=== PATIENT | male | born 1955 | race Caucasian/White ===

== ENCOUNTER 2018-11-12 08:08 | Emergency (ER) | payer MEDICARE, MEDICAID ==
--- NOTE | 2018-11-12 08:27 | EDM.PDOC ---
ED HPI GENERAL MEDICAL PROBLEM - General Chief Complaint: Respiratory Problem Stated Complaint: shortness of breath, anxiety Time Seen by Provider: 11/12/18 08:20 Source of Information: Reports: Patient, Jail Records, Old Records ([facility] EMR. No paper hospital chart available.) History Limitations: Reports: Respiratory Distress - History of Present Illness INITIAL COMMENTS - FREE TEXT/NARRATIVE: The patient was brought to the emergency room via transport vehicle from [facility] in [place] for evaluation of sudden onset dyspnea with patient having mild URI symptoms during the last week. Patient did receive his normal morning morphine and a nebulizer treatment with no improvement in his symptoms. His O2 sat prior to transfer was 90% on 3 L/m by nasal cannula. The patient did feel that he was having an anxiety attack and wanted to have Ativan , which has not been previously ordered for this patient secondary to his previous abuse history. He is a somewhat poor historian secondary to his current respiratory distress. The patient denies any chest pain/pressure, heart flutter, dizziness, orthostasis, orthopnea, diaphoresis, paresthesias, recent decreased exercise tolerance, or any other anginal-type symptoms, however his overall exercise tolerance is low with patient having bilateral below the knee amputations. No known history of abdominal pain, nausea, emesis, etc. Patient has had some URI symptoms as above with mild exacerbation of his COPD during the last few days. Onset: Today, Sudden, Unknown/Unsure Onset Date: 11/12/18 Onset Time: 07:00 Duration: Constant, Getting Worse Location: Reports: Other (No specific pain) Quality: Reports: Same as Previous Episode Improves with: Reports: None Worsens with: Reports: None Context: Reports: Other (As above). Denies: Sick Contact, Trauma Associated Symptoms: Reports: Cough, cough w sputum, Shortness of Breath. 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 Preglaucoma. Chronic tinnitus. Cardiovascular History: Reports: Blood Clots/VTE/DVT, High Cholesterol, Hypertension, PVD, Other (See Below) Other Cardiovascular History: DVT at unknown site with current Xarelto therapy. Respiratory History: Reports: Bronchitis, Recurrent, COPD, Intubation, Previous , Pneumonia, Recurrent, Pulmonary Fibrosis. Denies: Intubation, Difficult Gastrointestinal History: Reports: Chronic Constipation, Colon Polyp, GERD, Hiatal Hernia, Other (See Below) Other Gastrointestinal History: Sepulveda's esophagitis Genitourinary History: Reports: BPH Musculoskeletal History: Reports: Arthritis, Osteoarthritis, Osteoporosis, RA Neurological History: Reports: Neuropathy, Diabetic, Neuropathy, Peripheral, Other (See Below) Other Neuro History: Restless leg syndrome Psychiatric History: Reports: Addiction, Anxiety, Depression, Other (See Below) Other Psychiatric History: History of alcohol abuse and chronic narcotic use. Chronic insomnia. Endocrine/Metabolic History: Reports: Diabetes, Type II, Obesity/BMI 30+, Osteopenia, Osteoporosis, Vitamin D Deficiency, Other (See Below). Denies: Diabetes, Type I, Diabetes Mellitus, Type 3c, IDDM Other Endocrine/Metabolic History: Hypokalemia. Hematologic History: Reports: Anemia, Iron Deficiency - Infectious Disease History Infectious Disease History: Reports: MRSA (MRSA carrier) - Past Surgical History Musculoskeletal Surgical History: Reports: Amputation, Joint Replacement, Other (See Below) Other Musculoskeletal Surgeries/Procedures:: Bilateral [id number] amputations secondary to peripheral vascular disease. Left hip TEP. - Past Imaging History Past Imaging History: Reports: MRI (Left lower leg on 09/30/18.), PET (Whole Body PET scan on 09/05/18) Social & Family History - Tobacco Use Smoking Status *Q: Unknown Ever Smoked - Living Situation & Occupation Living situation: Reports: Extended Care Facility ([facility] in [place]) ED ROS GENERAL - Review of Systems Review Of Systems: ROS reveals no pertinent complaints other than HPI. ED EXAM, GENERAL - Physical Exam Exam: See Below Exam Limited By: Respiratory Distress General Appearance: Alert, Anxious (Severe), Severe Distress, Obese Eye Exam: Bilateral Eye: EOMI, Normal Inspection, PERRL Ears: Normal External Exam, Normal Canal, Normal TMs, Hearing Loss (Mild to moderate bilateral presbycusis) Nose: Normal Mucosa, No Blood, Clear Rhinorrhea Throat/Mouth: Normal Lips, Normal Gums, Normal Oropharynx, Normal Voice, No Airway Compromise. No: Normal Teeth (Complete absent dentition), Dysphagia, Perioral Cyanosis Head: Atraumatic, Normocephalic. No: Facial Swelling, Facial Tenderness, Sinus Tenderness Neck: Supple, Non-Tender, Full Range of Motion, Carotid Bruit (Mild bilateral carotid bruits), Limited Range of Motion. No: Lymphadenopathy (L), Lymphadenopathy (R), Thyromegaly Respiratory/Chest: Chest Non-Tender, Respiratory Distress (Severe as above), Decreased Breath Sounds, Rales (Moderate diffuse), Rhonchi (Bilateralmild), Wheezing (Occasional bilateral), Accessory Muscle Use, Retractions (Severe), Splinting. No: Pleural Rub Cardiovascular: No JVD, No Murmur, No Rub, Tachycardia (Sinus tachycardia by monitor), Other (Quiet heart sounds). No: Gallop/S3, Gallop/S4, Friction Rub Peripheral Pulses: 2+: Radial (L), Radial (R) GI/Abdominal: Normal Bowel Sounds, Soft, Non-Tender, No Organomegaly, No Abnormal Bruit, No Mass, Pelvis Stable, Distended (Mild). No: Guarding, Rigid, Rebound, Tender (Male) Exam: Deferred Rectal (Males) Exam: Deferred Back Exam: Normal Inspection, Full Range of Motion. No: CVA Tenderness (L), CVA Tenderness (R), Muscle Spasm Extremities: No Pedal Edema, Other (Bilateral below the knee amputations status post left knee TEP scar) Psychiatric: Anxious (Moderate to severe secondary to respiratory distress) Skin Exam: Warm, Dry, Intact, Normal Color, No Rash. No: Diaphoretic, Wound/ Incision Lymphatic: No Adenopathy ED GENERAL MEDICAL PROCEDURES - Endotracheal Intubation Time of Intubation: 09:55 ET Intubation Indication: Respiratory Failure Preparation: Suction, Balloon Tested, BVM Set Up Airway Assessment: Profuse Secretions, Obese, Large Tongue, Other (Stenotic vocal cords) Pre-Oxygenation: Assisted with BVM, 100% FiO2 Anesthesia Meds: Rocuronium, Succinylcholine, Other (IV Ativan) Placement: Orotracheal, Complicated Placement Cords Visualized: Yes, Other (See Criticare Note) ETT Size In mm: 6.5 (See comment note) Number of Attempts: Other: (See comment) Confirmed By: CO2 Indicator, Bilateral Breath Sounds Tube Secured By: By RN Endotracheal Intubation Comment: Critical care note: Note intubation was attempted with previous oral disinfection with multiple wipes. Visibility was overall good with occasional suctioning required. Note initial attempt 2 with #7 ET tube were unsuccessful secondary to strongly narrow/spastic vocal cords with adequate vocal cord visualization. Subsequent attempt with 6.5 ET tube 1 failed with additional attempt with 6.0 ET tube also unsuccessful. Note that Whitakers Scope was used for all intubations. Subsequent placement of a #4 Gabo tube was successful, however note despite preliminary check of cuffs Gabo tube showed a nonspecific leak from unknown source with inadequate oxygenation.. Gabo tube was replaced with #3 Igel, which showed peripheral air leaks, with subsequent change to #4 Igel with overall good oxygenation, etc. Note the patient was premedicated initially with 100 mg of IV succinylcholine with a total of 4 mg of IV Ativan given prior to initial intubation attempts. Additional 500 mg IV doses of succinylcholine 2 were required during his care. Note that also an additional 2 doses of 2 mg of IV Ativan were given during intubation process as above. Patient also received 90 mg of reconium after succinylcholine. Frequent reoxygenation with nonrebreather bag and mask ventilation after intubation and suctioning attempts. Note that Emed was also involved in the patient care. NG tube was placed by the nurse in the left naris Subsequent arrival of air flight team, who did elect to further premedicate the patient and attempt to place a 7.5 ET tube by means of a Bougee, which was successful. Total one-on-one continuous critical medical care time by this provider of 3.5 hours. EKG INTERPRETATION EKG Date: 11/12/18 Time: 10:44 Rhythm: Other (Sinus tachycardia) Rate (Beats/Min): 134 Lane City: LAD-Left Lane City Deviation (Extended left cardiac axis) P-Wave: Present QRS: RBBB (QRS interval of 0.10 seconds representing repolarization changes versus beginning incomplete right bundle branch block) ST-T: Other (T-wave inversion in lead AV L with nonspecific ST changes in lead 1. Additional mildly upsloping [address] depressions in leads V4 through V6) QT: Normal LA/PQ Interval: 0.14 seconds with poor R-wave progression in the anterior leads. Comparison: NA - No Prior EKG EKG Interpretation Comments: 1. Possible lateral wall cardiac ischemia 2. Sinus tachycardia 3. Repolarization changes versus borderline incomplete right bundle branch block Course - Vital Signs Last Recorded V/S: Last Vital Signs Temp Pulse 134 H 11/12/18 10:42 Resp BP 171/92 H 11/12/18 10:42 Pulse Ox See paper documentation - Orders/Labs/Meds Orders: Active Orders 24 hr Category Date Time Status Cardiac Monitoring [RC] . DIRECTED Care 11/12/18 08:27 Active EKG Documentation Completion [RC] ASDIRECTED Care 11/12/18 08:27 Active Dupree Catheter Insertion [Insert Urinary Catheter] [OM. Care 11/12/18 09:00 Ordered PC] Q24H Oxygen Therapy, ED [RC] CONTINUOUS Care 11/12/18 08:27 Active Peripheral IV Care [RC] . DIRECTED Care 11/12/18 08:27 Active Peripheral IV Care [RC] . DIRECTED Care 11/12/18 10:33 Ordered Pulse Oximetry [RC] CONTINUOUS Care 11/12/18 08:27 Active Up With Assistance [RC] PFP Care 11/12/18 08:27 Active Urinary Catheter Assessment [RC] ASDIRECTED Care 11/12/18 08:54 Active Vital Signs [RC] PFP Care 11/12/18 08:27 Active Nothing per Oral Now Diet [DIET] Diet 11/12/18 Breakfast Active Chest 1V Frontal [CR] Stat Exams 11/12/18 08:27 Ordered INFLUENZA A+B AG SCREEN [RM] Stat Lab 11/12/18 08:29 Ordered Morphine Med 11/12/18 08:28 Once 2 mg IVPUSH ONETIME ONE Morphine Med 11/12/18 08:46 Once 2 mg IVPUSH ONETIME ONE Sodium Chloride 0.9% [Saline Flush] Med 11/12/18 08:27 Active 10 ml FLUSH ASDIRECTED PRN Sodium Chloride 0.9% [Saline Flush] Med 11/12/18 10:32 Ordered 10 ml FLUSH ASDIRECTED PRN cefTRIAXone [Rocephin] 1 gm Med 11/12/18 11:48 Ordered Sodium Chloride 0.9% [Normal Saline] 100 ml IV ONETIME Obtain Past Medical Record [OM.PC] Urgent Oth 11/12/18 08:27 Active Peripheral IV Insertion Adult [OM.PC] Routine Oth 11/12/18 10:32 Ordered Peripheral IV Insertion Adult [OM.PC] Stat Oth 11/12/18 08:27 Ordered Resuscitation Status Stat Resus Stat 11/12/18 08:27 Ordered Medication Orders Morphine Sulfate (Morphine) 2 mg IVPUSH ONETIME ONE Stop: 11/13/18 08:29 Last Admin: 11/12/18 08:36 Dose: 2 mg Morphine Sulfate (Morphine) 2 mg IVPUSH ONETIME ONE Stop: 11/13/18 08:47 Last Admin: 11/12/18 08:50 Dose: 2 mg Sodium Chloride (Saline Flush) 10 ml FLUSH ASDIRECTED PRN PRN Reason: Keep Vein Open Last Admin: 11/12/18 09:00 Dose: 10 ml Sodium Chloride (Saline Flush) 10 ml FLUSH ASDIRECTED PRN PRN Reason: Keep Vein Open Labs: Laboratory Tests 11/12/18 11/12/18 11/12/18 Range/Units 08:35 08:35 08:35 WBC 16.6 H (4.0-10.2) K/uL RBC 4.11 L (4.33-5.41) M/uL Hgb 11.9 L D (13.1-16.8) g/dL Hct 37.4 L (39.0-49.0) % MCV 91.0 (84.0-98.0) fL MCH 29.0 (28.2-33.3) pg MCHC 31.8 (31.7-36.0) g/dL RDW 15.0 H (11.2-14.1) % Plt Count 267 (150-350) K/uL Neut % (Auto) 87.4 H (45.0-80.0) % Lymph % (Auto) 9.7 L (10.0-50.0) % Hendry % (Auto) 1.5 L (2.0-14.0) % Eos % (Auto) 1.3 (0.0-5.0) % Baso % (Auto) 0.1 (0.0-2.0) % Neut # (Auto) 14.49 H (1.40-7.00) K/uL Lymph # (Auto) 1.60 (0.50-3.50) K/uL Hendry # (Auto) 0.25 (0.00-1.00) K/uL Eos # (Auto) 0.21 (0.00-0.50) K/uL Baso # (Auto) 0.01 (0.00-0.20) K/uL PT 10.0 (9.5-12.0) SEC INR 0.9 APTT 23.6 (21.0-31.3) SEC D-Dimer, Quantitative 853 H (0-400) ng/mL Sodium (136-145) mmol/L Potassium (3.5-5.1) mmol/L Chloride (98-107) mmol/L Carbon Dioxide (21.0-32.0) mmol/L BUN (7-18) mg/dL Creatinine (0.51-1.17) mg/dL Est Cr Clr Drug Dosing Estimated GFR (MDRD) mL/min Glucose (74-106) mg/dL Lactic Acid (0.4-2.0) mmol/L Uric Acid (2.6-7.2) mg/dL Calcium (8.5-10.1) mg/dL Magnesium (1.8-2.4) mg/dL Total Bilirubin (0.2-1.0) mg/dL AST (15-37) U/L ALT (12-78) U/L Alkaline Phosphatase (46-116) IU/L Creatine Kinase (26-308) U/L Creatine Kinase Index (0.0-2.5) % CK-MB (CK-2) (0.00-3.60) ng/mL Troponin I (0.000-0.056) ng/mL NT-Pro-B Natriuret Pep (0-125) pg/mL Total Protein (6.4-8.2) g/dL Albumin (3.4-5.0) g/dL TSH, Ultra Sensitive (0.358-3.740) mIU/mL 11/12/18 11/12/18 Range/Units 08:35 08:35 WBC (4.0-10.2) K/uL RBC (4.33-5.41) M/uL Hgb (13.1-16.8) g/dL Hct (39.0-49.0) % MCV (84.0-98.0) fL MCH (28.2-33.3) pg MCHC (31.7-36.0) g/dL RDW (11.2-14.1) % Plt Count (150-350) K/uL Neut % (Auto) (45.0-80.0) % Lymph % (Auto) (10.0-50.0) % Hendry % (Auto) (2.0-14.0) % Eos % (Auto) (0.0-5.0) % Baso % (Auto) (0.0-2.0) % Neut # (Auto) (1.40-7.00) K/uL Lymph # (Auto) (0.50-3.50) K/uL Hendry # (Auto) (0.00-1.00) K/uL Eos # (Auto) (0.00-0.50) K/uL Baso # (Auto) (0.00-0.20) K/uL PT (9.5-12.0) SEC INR APTT (21.0-31.3) SEC D-Dimer, Quantitative (0-400) ng/mL Sodium 138 (136-145) mmol/L Potassium 4.0 (3.5-5.1) mmol/L Chloride 99 (98-107) mmol/L Carbon Dioxide 30.9 (21.0-32.0) mmol/L BUN 18 (7-18) mg/dL Creatinine 0.79 (0.51-1.17) mg/dL Est Cr Clr Drug Dosing TNP Estimated GFR (MDRD) > 60 mL/min Glucose 127 H (74-106) mg/dL Lactic Acid 2.6 H (0.4-2.0) mmol/L Uric Acid 4.3 (2.6-7.2) mg/dL Calcium 8.9 (8.5-10.1) mg/dL Magnesium 1.6 L (1.8-2.4) mg/dL Total Bilirubin 0.3 (0.2-1.0) mg/dL AST 34 (15-37) U/L ALT 29 (12-78) U/L Alkaline Phosphatase 67 (46-116) IU/L Creatine Kinase 105 (26-308) U/L Creatine Kinase Index 2.2 (0.0-2.5) % CK-MB (CK-2) 2.30 (0.00-3.60) ng/mL Troponin I 0.000 (0.000-0.056) ng/mL NT-Pro-B Natriuret Pep 97 (0-125) pg/mL Total Protein 8.0 (6.4-8.2) g/dL Albumin 3.4 (3.4-5.0) g/dL TSH, Ultra Sensitive 1.784 (0.358-3.740) mIU/mL Meds: Medications Generic Name Dose Route Start Last Admin Trade Name Freq PRN Reason Stop Dose Admin Morphine Sulfate 2 mg 11/12/18 08:28 11/12/18 08:36 Morphine IVPUSH 11/13/18 08:29 2 mg ONETIME ONE Administration Morphine Sulfate 2 mg 11/12/18 08:46 11/12/18 08:50 Morphine IVPUSH 11/13/18 08:47 2 mg ONETIME ONE Administration Sodium Chloride 10 ml 11/12/18 08:27 11/12/18 09:00 Saline Flush FLUSH 10 ml ASDIRECTED PRN Administration Keep Vein Open Sodium Chloride 10 ml 11/12/18 10:32 Saline Flush FLUSH ASDIRECTED PRN Keep Vein Open Discontinued Medications Generic Name Dose Route Start Last Admin Trade Name Freq PRN Reason Stop Dose Admin Famotidine 40 mg 11/12/18 08:27 11/12/18 08:47 Pepcid IVPUSH 11/12/18 08:28 40 mg ONETIME ONE Administration Furosemide 60 mg 11/12/18 08:29 11/12/18 08:34 Lasix IVPUSH 11/12/18 08:30 60 mg NOW ONE Administration Lorazepam 1 mg 11/12/18 08:29 11/12/18 08:38 Ativan IVPUSH 11/12/18 08:30 1 mg ONETIME ONE Administration Lorazepam 1 mg 11/12/18 08:54 11/12/18 08:56 Ativan IVPUSH 11/12/18 08:55 1 mg ONETIME ONE Administration Lorazepam 2 mg 11/12/18 09:04 Ativan IVPUSH 11/12/18 09:05 ONETIME ONE Lorazepam Confirm 11/12/18 09:13 Ativan Administered 11/12/18 09:14 Dose 2 mg .ROUTE .STK-MED ONE Lorazepam Confirm 11/12/18 09:46 Ativan Administered 11/12/18 09:47 Dose 2 mg .ROUTE .STK-MED ONE Metoprolol Tartrate 2.5 mg 11/12/18 08:27 11/12/18 08:40 Lopressor IVPUSH 11/12/18 08:28 2.5 mg ONETIME ONE Administration Metoprolol Tartrate 2.5 mg 11/12/18 10:11 Lopressor IVPUSH 11/12/18 10:12 ONETIME ONE Metoprolol Tartrate 2.5 mg 11/12/18 10:33 11/12/18 10:42 Lopressor IVPUSH 11/12/18 10:34 2.5 mg ONETIME ONE Administration Nitroglycerin 0.5 gm 11/12/18 10:33 11/12/18 10:43 Nitro-Bid 2% TOP 11/12/18 10:34 0.5 gm ONETIME ONE Administration Rocuronium Skillman Confirm 11/12/18 10:02 Zemuron Administered 11/12/18 10:03 Dose 100 mg .ROUTE .STK-MED ONE Succinylcholine Chloride 100 mg 11/12/18 09:04 Quelicin IV 11/12/18 09:05 ONETIME ONE See paper documentation for more detailed accurate record - Radiology Interpretation Free Text/Narrative:: 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 Pulses in the 130s prior to transfer with no other ectopy or arrhythmia Chest x-ray, portable, shows NG tube to be in proper position. Moderate diffuse COPD changes with no evidence of pneumothorax. Large V-shaped consolidation/ atelectasis in the right lower lobe consistent with possible pulmonary embolism. Moderate CHF with mild bilateral pleural effusions. Official chest x-ray report from above indicates suspected right lower lobe pneumonia with no direct indication of CHF Departure - Departure Time of Disposition: 12:00 Disposition: DC/Tfer to Acute Hospital 02 Condition: Critical Clinical Impression: CHF, Congestive heart failure, Gastroesophageal reflux disease, Hypertension, Respiratory failure, COPD (chronic obstructive pulmonary disease), Elevated d- dimer, Hypomagnesemia, Lactic acid blood increased, Anemia - Discharge Information *PRESCRIPTION DRUG MONITORING PROGRAM REVIEWED*: Not Applicable *COPY OF PRESCRIPTION DRUG MONITORING REPORT IN PATIENT ISAURA: Not Applicable Referrals: Claudia Louis MD [Primary Care Provider] - Forms: ED Department Discharge, Interfacility Transfer EMTALA - Problem List & Annotations (1) Respiratory failure SNOMED Code(s): 066798148 Code(s): J96.90 - RESPIRATORY FAILURE, UNSP, UNSP W HYPOXIA OR HYPERCAPNIA Status: Acute Priority: High Onset Date: 11/12/18 Annotation/Comment:: See intubation/critical care note as above. Qualifiers: Chronicity: acute Respiratory failure complication: hypoxia Qualified Code(s): J96.01 - Acute respiratory failure with hypoxia (2) CHF, Congestive heart failure SNOMED Code(s): 36582177 Code(s): I50.9 - HEART FAILURE, UNSPECIFIED Status: Acute Priority: High Annotation/Comment:: Despite normal cardiac enzymes and BNP there was evidence of clinical CHF, including borderline CHF by my evaluation of chest x- ray, although the official x-ray report did not confirm this. Note nonspecific possible lateral wall ischemia by today's EKG with no anginal complaints prior to arrival. High-dose IV Lasix at 60 mg given with excellent output prior to transfer. (3) Elevated d-dimer SNOMED Code(s): 095139772 Code(s): R79.89 - OTHER SPECIFIED ABNORMAL FINDINGS OF BLOOD CHEMISTRY Status: Acute Priority: High Onset Date: 11/12/18 Annotation/Comment:: Note evaluation of today's chest x-ray indicates possible right lower lobe PE, which the radiologist did not confirm as above. Note current Xarelto and ASA therapy for previous distant DVT. Further evaluation by accepting providers. (4) Lactic acid blood increased SNOMED Code(s): 9071246 Code(s): R79.89 - OTHER SPECIFIED ABNORMAL FINDINGS OF BLOOD CHEMISTRY Status: Acute Priority: High Annotation/Comment:: As above. Note significant leukocytosis likely secondary to stress reaction. Possible pneumonia as above. Blood cultures were not collected with air flight team agreeing to initiate IV Rocephin antibiotic therapy immediately prior to transfer. Consider initiation of sepsis protocol by accepting providers on his arrival to their facility. Note, however, that patient is afebrile. (5) COPD (chronic obstructive pulmonary disease) SNOMED Code(s): 90270101 Code(s): J44.9 - CHRONIC OBSTRUCTIVE PULMONARY DISEASE, UNSPECIFIED Status : Chronic Priority: High Annotation/Comment:: Evidence of possible right middle lobe by chest x-ray reported as above. Note lactic acid elevation as below. Consider further aggressive IV antibiotic therapy by accepting providers with IV Rocephin therapy initiated immediately prior to patient's transfer. Qualifiers: COPD type: COPD with acute lower respiratory infection Qualified Code(s): J44.0 - Chronic obstructive pulmonary disease with acute lower respiratory infection (6) Anemia SNOMED Code(s): 727905277 Code(s): D64.9 - ANEMIA, UNSPECIFIED Status: Chronic Priority: Medium Annotation/Comment:: Mild iron deficiency anemia known by history with current Xarelto and aspirin therapy. No evidence of acute GI bleed Qualifiers: Anemia type: iron deficiency Iron deficiency anemia type: other iron deficiency Qualified Code(s): D50.8 - Other iron deficiency anemias (7) Gastroesophageal reflux disease SNOMED Code(s): 007451630 Code(s): K21.9 - GASTRO-ESOPHAGEAL REFLUX DISEASE WITHOUT ESOPHAGITIS Status: Chronic Priority: Medium Annotation/Comment:: High-dose IV Pepcid given as GI prophylaxis. Patient does have history of Sepulveda's esophagitis with no recent history of acute GI bleed, etc. Qualifiers: Esophagitis presence: with esophagitis Qualified Code(s): K21.0 - Gastro- esophageal reflux disease with esophagitis (8) Hypertension SNOMED Code(s): 27455458 Code(s): I10 - ESSENTIAL (PRIMARY) HYPERTENSION Status: Acute Priority: High Annotation/Comment:: Patient was moderately hypertensive on arrival secondary to respiratory distress. No known history of medication noncompliance with the patient receiving his a.m. medications. A total of 4 aliquots 2.5 mg of IV Lopressor was given throughout his care in this facility. Vital signs and blood pressures were improved prior to transfer Qualifiers: Hypertension type: essential hypertension Qualified Code(s): I10 - Essential (primary) hypertension (9) Hypomagnesemia SNOMED Code(s): 508754403 Code(s): E83.42 - HYPOMAGNESEMIA Status: Acute Priority: Medium Onset Date: 11/12/18 Annotation/Comment:: Consider magnesium supplementation especially in light of IV Lasix therapy. - Problem List Review Problem List Initiated/Reviewed/Updated: Yes - My Orders Last 24 Hours: My Active Orders 11/12/18 08:27 Cardiac Monitoring [RC] . DIRECTED EKG Documentation Completion [RC] ASDIRECTED Oxygen Therapy, ED [RC] CONTINUOUS Peripheral IV Care [RC] . DIRECTED Pulse Oximetry [RC] CONTINUOUS Up With Assistance [RC] PFP Vital Signs [RC] PFP Chest 1V Frontal [CR] Stat Sodium Chloride 0.9% [Saline Flush] 10 ml FLUSH ASDIRECTED PRN Obtain Past Medical Record [OM.PC] Urgent Peripheral IV Insertion Adult [OM.PC] Stat Resuscitation Status Stat 11/12/18 08:28 Morphine 2 mg IVPUSH ONETIME ONE 11/12/18 08:29 INFLUENZA A+B AG SCREEN [RM] Stat 11/12/18 08:46 Morphine 2 mg IVPUSH ONETIME ONE 11/12/18 08:54 Urinary Catheter Assessment [RC] ASDIRECTED 11/12/18 09:00 Dupree Catheter Insertion [Insert Urinary Catheter] [OM.PC] Q24H 11/12/18 10:32 Sodium Chloride 0.9% [Saline Flush] 10 ml FLUSH ASDIRECTED PRN Peripheral IV Insertion Adult [OM.PC] Routine 11/12/18 10:33 Peripheral IV Care [RC] . DIRECTED 11/12/18 11:48 cefTRIAXone [Rocephin] 1 gm Sodium Chloride 0.9% [Normal Saline] 100 ml IV ONETIME 11/12/18 Breakfast Nothing per Oral Now Diet [DIET] - Assessment/Plan Last 24 Hours: My Active Orders 11/12/18 08:27 Cardiac Monitoring [RC] . DIRECTED EKG Documentation Completion [RC] ASDIRECTED Oxygen Therapy, ED [RC] CONTINUOUS Peripheral IV Care [RC] . DIRECTED Pulse Oximetry [RC] CONTINUOUS Up With Assistance [RC] PFP Vital Signs [RC] PFP Chest 1V Frontal [CR] Stat Sodium Chloride 0.9% [Saline Flush] 10 ml FLUSH ASDIRECTED PRN Obtain Past Medical Record [OM.PC] Urgent Peripheral IV Insertion Adult [OM.PC] Stat Resuscitation Status Stat 11/12/18 08:28 Morphine 2 mg IVPUSH ONETIME ONE 11/12/18 08:29 INFLUENZA A+B AG SCREEN [RM] Stat 11/12/18 08:46 Morphine 2 mg IVPUSH ONETIME ONE 11/12/18 08:54 Urinary Catheter Assessment [RC] ASDIRECTED 11/12/18 09:00 Dupree Catheter Insertion [Insert Urinary Catheter] [OM.PC] Q24H 11/12/18 10:32 Sodium Chloride 0.9% [Saline Flush] 10 ml FLUSH ASDIRECTED PRN Peripheral IV Insertion Adult [OM.PC] Routine 11/12/18 10:33 Peripheral IV Care [RC] . DIRECTED 11/12/18 11:48 cefTRIAXone [Rocephin] 1 gm Sodium Chloride 0.9% [Normal Saline] 100 ml IV ONETIME 11/12/18 Breakfast Nothing per Oral Now Diet [DIET] Assessment:: As above Plan: As above. Extensive precautions were given to the patient, who is in agreement with the treatment plan, including intubation transfer, etc. Air ambulance transfer as above.
[2018-11-12] MEDS: Furosemide 40 MG/4 ML VIAL IVPUSH ONE (08:34)
[2018-11-12] MEDS: Morphine 10 MG/ML Syringe IVPUSH ONE ×2 (08:36→08:50)
[2018-11-12] MEDS: LORazepam 2 MG/ML SDV IVPUSH ONE ×2 (08:38→08:56)
[2018-11-12] MEDS: Metoprolol Tartrate 5 MG/5 ML SDV IVPUSH ONE ×2 (08:40→10:42)
[2018-11-12] MEDS: Famotidine 20 MG/2 ML SDV IVPUSH ONE (08:47)
[2018-11-12] MEDS: Sodium Chloride 0.9% 10 ML Syringe FLUSH PRN (09:00)
[2018-11-12] MEDS ORDERED: Succinylcholine 200 MG/10 ML MDV IV ONE (09:04)
[2018-11-12] MEDS ORDERED: LORazepam 2 MG/ML SDV IVPUSH ONE (09:04)
[2018-11-12] MEDS ORDERED: LORazepam 2 MG/ML SDV ONE ×2 (09:13→09:46)
[2018-11-12 09:15] LABS: CHLORIDE,CL 99 mmol/L (98-107); SODIUM,NA 138 mmol/L (136-145)
[2018-11-12] MEDS ORDERED: Rocuronium 100 MG/10 ML MDV ONE (10:02)
[2018-11-12] MEDS ORDERED: Metoprolol Tartrate 5 MG/5 ML SDV IVPUSH ONE (10:11)
[2018-11-12] MEDS ORDERED: Sodium Chloride 0.9% 10 ML Syringe FLUSH PRN (10:32)
[2018-11-12] MEDS: Nitroglycerin 2% Oint 1 GM UD Packet TOP ONE (10:43)
[2018-11-12] MEDS ORDERED: cefTRIAXone 1 GM in Sodium Chloride 0.9% 100 ML IV ONE (11:48)
== END 2018-11-12 12:00 ==
LOC: LL.ED 08:08
DX: I11.0 Hypertensive heart disease with heart failure (principal); I50.9 Heart failure, unspecified; K21.9 Gastro-esophageal reflux disease without esophagitis; J96.90 Respiratory failure, unspecified, unspecified whether with hypoxia or hypercapnia; E83.42 Hypomagnesemia; D64.9 Anemia, unspecified; R74.0 Nonspecific elevation of levels of transaminase and lactic acid dehydrogenase [LDH]; E11.42 Type 2 diabetes mellitus with diabetic polyneuropathy; E78.00 Pure hypercholesterolemia, unspecified; Z79.01 Long term (current) use of anticoagulants
CPT/HCPCS: 31500; 36000; 36415; 51702; 71045; 80053; 82550; 82553; 83605; 83735; 83880; 84443; 84484; 84550; 85025; 85379; 85610; 85730; 93005; 93010; 96374; 96375; 96376; 99291; 99292; A9270-GY; J0330; J1940; J2060; J2270; J3490